=== PATIENT | female | born 1955 | race Caucasian/White ===

== ENCOUNTER 2016-08-28 13:05 | Emergency (ER) | payer OTHER ==
[2016-08-28 13:42] VITALS: BMI 28.3
[2016-08-28 13:57] VITALS: BP 144/91; RESP 16
[2016-08-28 14:01] VITALS: PULSE 88; TEMP 97.7; O2SAT 100
--- NOTE | 2016-08-28 15:29 | ED PDOC ---
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 Otherwise: (-) trauma, (-) urinary symptoms, (-) paresthesias, (-) weakness, (- ) acute bowel or bladder dysfunction, (-) fever. Has no history of prior back problem. PMD Darrius Past Medical History - Provider Review Nursing Documentation Reviewed: Yes - Past History Past History: No Previous - Infectious Disease Hx of Infectious Diseases: None - Tetanus Immunization Tetanus Immunization: Unknown - Reproductive Menopause: Yes - Cardiac Hx Cardiac Disorders: Yes Hx Hypertension: Yes - Pulmonary Hx Respiratory Disorders: Yes Hx Bronchitis: Yes Hx Chronic Obstructive Pulmonary Disease (COPD): Yes - Neurological Hx Neurological Disorder: No - HEENT Hx HEENT Disorder: No - Renal Hx Renal Disorder: No - Endocrine/Metabolic Hx Endocrine Disorders: No - Hematological/Oncological Hx Blood Disorders: No - Integumentary Hx Dermatological Disorder: No - Musculoskeletal/Rheumatological Hx Musculoskeletal Disorders: Yes Hx Back Pain: Yes Hx Falls: No - Gastrointestinal Hx Gastrointestinal Disorders: No - Genitourinary/Gynecological Hx Genitourinary Disorders: No - Psychiatric Hx Psychophysiologic Disorder: No Hx Substance Use: No - Past Surgical History Past Surgical History: Non-Contributing - Surgical History Hx Cardiac Catheterization: Yes (balloon) - Anesthesia Hx Anesthesia: Yes Hx Anesthesia Reactions: No - Suicidal Assessment Feels Threatened In Home Enviroment: No Family/Social History - Physician Review Nursing Documentation Reviewed: Yes Family/Social History: No Known Family HX Smoking Status: Never Smoked Hx Alcohol Use: No Hx Substance Use: No Hx Substance Use Treatment: No Allergies/Home Meds Allergies/Adverse Reactions: Allergies epinephrine Allergy (Verified 08/28/16 13:38) RASH hydroxyzine [From Atarax] Allergy (Verified 08/28/16 13:38) RASH Review of Systems - Review of Systems Constitutional: Normal. absent: Fatigue, Weight Change, Fevers Respiratory: Normal. absent: SOB, Cough, Sputum Cardiovascular: Normal. absent: Chest Pain, Palpitations, Edema Gastrointestinal: Normal. absent: Abdominal Pain, Stool Changes, Appetite Changes Musculoskeletal: Normal, Back Pain. absent: Arthralgias, Neck Pain Skin: Normal. absent: Rash, Pruritis, Skin Lesions Physical Exam - Physical Exam Narrative Physical Exam (Text): 08/28/16 15:32 GENERAL APPEARANCE: Patient is awake, alert, oriented x 3, in no acute distress. SKIN: Warm, dry; (-) cyanosis. EYES: (-) conjunctival pallor. ENMT: Mucous membranes moist. NECK: (-) tenderness, (-) stiffness, (-) lymphadenopathy. CHEST AND RESPIRATORY: (-) rales, (-) rhonchi, (-) wheezes; breath sounds equal bilaterally. HEART AND CARDIOVASCULAR: (-) irregularity; (-) murmur, (-) gallop. ABDOMEN AND GI: Soft; (-) tenderness; (-) palpable mass. BACK: (-) paravertebral tenderness, (-) spasm, (-) direct bony tenderness, (-) deformity. Straight leg raising (-) bilaterally. EXTREMITIES: (-) deformity. Distal pulses good bilaterally. NEURO AND PSYCH: Mental status as above. Intact sensation bilaterally; normal strength in extension of the knees, plantar and dorsiflexion of the toes. DTRs symmetric. Vital Signs Temp Pulse Resp BP Pulse Ox 08/28/16 14:00 97.7 F 88 16 144/91 H 100 08/28/16 13:05 98 F 86 16 144/91 H 97 Medical Decision Making ED Course and Treatment: 08/28/16 15:32 61 yo F c/o low back pain x 4 days. XR L spine ordered, patient medicated with tramadol for pain. XR L spine: (-) acute fracture, mild DJD, as read by PA. XR results d/w the patient in great detail. Reports improvement of her back pain. Based on history, exam and diagnostic results plan will be for outpatient follow up. Patient states she fully agrees with and understands discharge instructions. States that she agrees with the plan and disposition. Verbalized and repeated discharge instructions and plan. I have given the patient opportunity to ask any additional questions. Follow up with primary care physician in 1-2 days without fail. Advised to take medication as prescribed. Return to the emergency room at any time for any new or worsening symptoms. Re-evaluation Time: 16:00 Reassessment Condition: Re-examined (Patient observed ambulating in the ER with a normal gait, in no acute distress. ) - RAD Interpretation Radiology Orders: 08/28/16 14:53 LS SPINE WITH OBL > 18 YRS OLD [RAD] Stat - Medication Orders Current Medication Orders: Discontinued Medications Tramadol HCl (Ultram) 50 mg PO STAT STA Stop: 08/28/16 14:54 Last Admin: 08/28/16 15:12 Dose: 50 mg - PA / IMMIGRATION COORDINATOR / Resident Statement MD/DO has reviewed & agrees with the documentation as recorded. Disposition/Present on Arrival - Present on Arrival Any Indicators Present on Arrival: No History of DVT/PE: No History of Uncontrolled Diabetes: No Urinary Catheter: No History of Decub. Ulcer: No History Surgical Site Infection Following: None - Disposition Have Diagnosis and Disposition been Completed?: Yes Diagnosis: Low back pain Disposition: HOME/ ROUTINE Disposition Time: 17:01 Patient Plan: Discharge Patient Problems: Current Active Problems Problem Status Onset Low back pain Acute Condition: GOOD Discharge Instructions (ExitCare): Acute Low Back Pain (ED) Print Language: SLOVAK Additional Instructions: Thank you for letting us take care of you today. You were treated for low back pain. The emergency medical care you received today was directed at your acute symptoms. If you were prescribed any medication, please fill it and take as directed. It may take several days for your symptoms to resolve. Return to the Emergency Department if your symptoms worsen, do not improve, or if you have any other problems. Please contact your doctor in 2 days for re-evaluation and follow up. Bring any paperwork you were given at discharge with you along with any medications you are taking to your follow up visit. Our treatment cannot replace ongoing medical care by a primary care provider (PCP) outside of the emergency department. Thank you for allowing the [facility] team to be part of your care today. Prescriptions: traMADol [Ultram] 50 mg PO TID #15 tab Referrals: Ayad Rizo MD [Primary Care Provider] - Follow up with primary
--- NOTE | 2016-08-29 12:37 | RAD ---
PROCEDURE: Radiographs of the Lumbar Spine. HISTORY: pain COMPARISON: No prior. FINDINGS: BONES: Normal alignment. No listhesis. No fracture. DISC SPACES: Unremarkable. OTHER FINDINGS: Cholelithiasis noted. IMPRESSION: No evidence of fracture or degenerative disc disease. Cholelithiasis incidentally noted.
== END 2016-08-28 17:05 | disposition home or self-care (01) ==
LOC: ED 13:05
DX: M54.5 Low back pain (principal)

== ENCOUNTER 2017-08-09 18:38 | Emergency (ER) | payer OTHER ==
[2017-08-09 19:39] VITALS: BMI 36.6
[2017-08-09 19:44] VITALS: RESP 18
[2017-08-09] MEDS ORDERED: Albuterol-Ipratrop 3 mg / 0.5 (3 ml) UD IH STA (19:56)
--- NOTE | 2017-08-09 20:17 | ED PDOC ---
Arrival/HPI - General Historian: Patient, Family (son as materials recycler) <Bernardo Lan - Last Filed: 08/09/17 22:08> - History of Present Illness Symptom Onset: Sudden Symptom Course: Worsening Quality: Tightness Severity Level: Moderate <JefevaReji - Last Filed: 08/10/17 00:01> - General Chief Complaint: Respiratory Distress Time Seen by Provider: 08/09/17 19:32 - History of Present Illness Narrative History of Present Illness (Text): 08/09/17 20:05 Patient is a 62 year old female with a past medical history of asthma, hypertension and diabetes presenting with shortness of breath. The shortness of breath started yesterday with increased phlegm (white), cough and wheezing. She took multiple nebulizer treatments but only was able to obtain mild relief for a short period of time. She was unable to sleep last night and the shortness of breath continued to worsen throughout the day to cause her to come to the emergency room. Denies fevers, chills, nausea, vomiting, diarrhea, constipation , chest pain, edema, abdominal pain, numbness, tingling. Patient denies recent travel, recent surgery, sedentary lifestyle, history of dvt/pe or hemoptysis. ( Bernardo Lan) Past Medical History - Provider Review Nursing Documentation Reviewed: Yes - Past History Past History: No Previous - Infectious Disease Hx of Infectious Diseases: None - Tetanus Immunization Tetanus Immunization: Unknown - Reproductive Menopause: Yes - Cardiac Hx Cardiac Disorders: Yes Hx Hypertension: Yes - Pulmonary Hx Respiratory Disorders: Yes Hx Bronchitis: Yes Hx Chronic Obstructive Pulmonary Disease (COPD): Yes - Neurological Hx Neurological Disorder: No - HEENT Hx HEENT Disorder: No - Renal Hx Renal Disorder: No - Endocrine/Metabolic Hx Endocrine Disorders: No - Hematological/Oncological Hx Blood Disorders: No - Integumentary Hx Dermatological Disorder: No - Musculoskeletal/Rheumatological Hx Musculoskeletal Disorders: Yes Hx Back Pain: Yes Hx Falls: No - Gastrointestinal Hx Gastrointestinal Disorders: No - Genitourinary/Gynecological Hx Genitourinary Disorders: No - Psychiatric Hx Psychophysiologic Disorder: No Hx Substance Use: No - Past Surgical History Past Surgical History: Non-Contributing - Surgical History Hx Cardiac Catheterization: Yes (balloon) - Anesthesia Hx Anesthesia: Yes Hx Anesthesia Reactions: No - Suicidal Assessment Feels Threatened In Home Enviroment: No <Bernardo Lan - Last Filed: 08/09/17 22:08> Family/Social History - Physician Review Nursing Documentation Reviewed: Yes Family/Social History: Unknown Family HX Smoking Status: Never Smoked Hx Alcohol Use: No Hx Substance Use: No Hx Substance Use Treatment: No <Bernardo Lan - Last Filed: 08/09/17 22:08> Allergies/Home Meds <Bernardo Lan - Last Filed: 08/09/17 22:08> <Reji Machado - Last Filed: 08/10/17 00:01> Allergies/Adverse Reactions: Allergies epinephrine Allergy (Verified 08/28/16 13:38) RASH hydroxyzine [From Atarax] Allergy (Verified 08/28/16 13:38) RASH Review of Systems - Physician Review All systems were reviewed & negative as marked: Yes - Review of Systems Constitutional: Normal. absent: Fatigue, Fevers Eyes: Normal ENT: Normal. absent: Sore Throat, Rhinorrhea, Sinus Congestion Respiratory: SOB, Cough, Sputum (white) Cardiovascular: Normal. absent: Chest Pain, Palpitations, Edema, Calf Pain, WRIGHT , Orthopnea, Syncope Gastrointestinal: Normal. absent: Abdominal Pain, Constipation, Diarrhea, Nausea, Vomiting Genitourinary Female: Normal. absent: Dysuria, Frequency (baseline increased freq due to lasix) Musculoskeletal: Normal. absent: Back Pain Skin: Normal Neurological: Normal. absent: Headache, Dizziness Endocrine: Normal. absent: Diaphoresis Hemo/Lymphatic: Normal Psychiatric: Normal <Bernardo Lan - Last Filed: 08/09/17 22:08> Physical Exam Vital Signs Reviewed: Yes Blood Pressure: Normal Pulse: Regular Respiratory Rate: Normal Appearance: Positive for: Well-Appearing, Non-Toxic, Comfortable Pain Distress: None Mental Status: Positive for: Alert and Oriented X 3 - Systems Exam Head: Present: Atraumatic, Normocephalic Pupils: Present: PERRL Extroacular Muscles: Present: EOMI Conjunctiva: Present: Normal Mouth: Present: Moist Mucous Membranes Pharnyx: Present: Normal. No: ERYTHEMA, EXUDATE, TONSILS ENLARGED Neck: Present: Normal Range of Motion Respiratory/Chest: Present: Clear to Auscultation, Good Air Exchange. No: Respiratory Distress, Accessory Muscle Use, Wheezes, Rales, Retracting, Rhonchi , Tender to Palpation Cardiovascular: Present: Regular Rate and Rhythm, Normal S1, S2. No: Murmurs Abdomen: Present: Normal Bowel Sounds. No: Tenderness, Distention, Peritoneal Signs, Rebound, Guarding Upper Extremity: Present: Normal Inspection, NORMAL PULSES. No: Cyanosis, Edema Lower Extremity: Present: Normal Inspection, Edema (1+ pitting), NORMAL PULSES. No: CALF TENDERNESS, Tenderness Neurological: Present: GCS=15, CN II-XII Intact, Speech Normal Skin: Present: Warm, Dry, Normal Color. No: Rashes Psychiatric: Present: Alert, Oriented x 3, Normal Insight, Normal Concentration <Bernardo Lan - Last Filed: 08/09/17 22:08> Vital Signs Temp Pulse Resp BP Pulse Ox 08/09/17 22:57 98.6 F 77 18 129/74 98 08/09/17 22:28 98.6 F 08/09/17 19:50 18 08/09/17 19:46 97.1 F L 74 18 147/85 97 08/09/17 19:42 75 18 123/80 98 Medical Decision Making Re-evaluation Time: 22:00 Reassessment Condition: Re-examined, Improved - Lab Interpretations I have reviewed the lab results: Yes - RAD Interpretation Bit Sharpener: ED Physician - EKG Interpretation Interpreted by ED Physician: Yes Comparison: Com.w/previous EKG <Bernardo Lan - Last Filed: 08/09/17 22:08> <Reji Machado - Last Filed: 08/10/17 00:01> ED Course and Treatment: 08/09/17 19:58 Labs and CXR order Given solumedrol and duoneb 08/09/17 21:56 Labs - unremarkable CXR - poor inspiratory effort, no infiltrate noted Patient is sleeping comfortably in bed. She is saturating at 96% on RA breathing comfortably. Patient will be discharged home and was instructed to follow up with her PMD in 2-3 days. Patient states she understands and agrees to discharge plan. (Bernardo Lan) 08/09/17 23:53 Patient Seen With Resident: In agreement with resident note which contains more details about the patient. Patient was seen and evaluated with resident. Came up with plan and treatment together. 62 year old female presents complaining of shortness of breath associated with increased phlegm, cough, and wheezing. Plan: -- EKG -- Labs -- Chest X-ray -- Duoneb, Solu-Medrol -- O2 via Nasal Cannula -- Urinalysis (Reji Machado) - Lab Interpretations Lab Results: 08/09/17 20:24 08/09/17 20:24 Lab Results 08/09/17 20:24: PT 11.9, INR 1.04, APTT 24.8 L 08/09/17 20:24: Sodium 140, Potassium 4.1, Chloride 105, Carbon Dioxide 24, Anion Gap 15, BUN 19, Creatinine 0.8, Est GFR ( Amer) > 60, Est GFR (Non- Af Amer) > 60, Random Glucose 101, Calcium 9.2, Magnesium 2.0, Total Bilirubin 0.3, AST 32, ALT 35, Alkaline Phosphatase 122, Lactate Dehydrogenase 512, Total Creatine Kinase 103, Troponin I < 0.01, NT-Pro-B Natriuret Pep 75.3, Total Protein 7.6, Albumin 4.1, Globulin 3.5, Albumin/Globulin Ratio 1.2 08/09/17 20:24: WBC 7.8 D, RBC 4.01, Hgb 12.1, Hct 36.7, MCV 91.5, MCH 30.2, MCHC 33.0, RDW 14.2, Plt Count 189, MPV 11.8 H, Gran % 50.6, Lymph % (Auto) 38.7 H, Trigg % (Auto) 6.2 H, Eos % (Auto) 4.2, Baso % (Auto) 0.3, Gran # 3.94, Lymph # (Auto) 3.0, Trigg # (Auto) 0.5, Eos # (Auto) 0.3, Baso # (Auto) 0.02 - RAD Interpretation Narrative RAD Interpretations (Text): 08/09/17 22:00 CXR - No active disease, poor inspiratory effort, no infiltrate noted - overall normal CXR (Bernardo Lan) Radiology Orders: 08/09/17 19:55 CXR [CHEST PORTABLE] [RAD] Stat - EKG Interpretation EKG Interpretation (Text): 08/09/17 22:02 [id number]@85bpm, normal axis, inverted p waves in aVR, V1 and V2, poor R wave progression in V1-V3 - inverted p waves seen in leads aVR and V1 but not V2 in prior EKG from 2015. - poor R wave progression compared to prior EKG from 2015. (Bernardo Lan) - Medication Orders Current Medication Orders: Discontinued Medications Albuterol/Ipratropium (Duoneb 3 Mg/0.5 Mg (3 Ml) Ud) 3 ml IH STAT STA Stop: 08/09/17 19:57 Last Admin: 08/09/17 20:54 Dose: 3 ml Methylprednisolone (Solu-Medrol) 125 mg IVP STAT STA Stop: 08/09/17 19:59 Last Admin: 08/09/17 20:54 Dose: 125 mg IVP Administration Document 08/09/17 20:54 IT (Rec: 08/09/17 20:54 IT [id number]) Charges for Administration # of IVP Administrations 1 <Bernardo Lan - Last Filed: 08/09/17 22:08> - PA / GLASS TECHNICIAN/INSTALLER / Resident Statement MD/DO has reviewed & agrees with the documentation as recorded. MD/DO has examined the patient and agrees with the treatment plan. - Scribe Statement The provider has reviewed the documentation as recorded by the Scribe <Reji Machado - Last Filed: 08/10/17 00:01> - Scribe Statement Madhavi Casas Provider Scribe Attestation: All medical record entries made by the Scribe were at my direction and personally dictated by me. I have reviewed the chart and agree that the record accurately reflects my personal performance of the history, physical exam, medical decision making, and the department course for this patient. I have also personally directed, reviewed, and agree with the discharge instructions and disposition. (Reji Machado) Disposition/Present on Arrival - Present on Arrival Any Indicators Present on Arrival: No History of DVT/PE: No History of Uncontrolled Diabetes: No Urinary Catheter: No History of Decub. Ulcer: No History Surgical Site Infection Following: None - Disposition Have Diagnosis and Disposition been Completed?: Yes Disposition Time: 22:12 Patient Plan: Discharge <Bernardo Lan - Last Filed: 08/09/17 22:08> <Reji Machado - Last Filed: 08/10/17 00:01> - Disposition Diagnosis: Asthma exacerbation Disposition: HOME/ ROUTINE Condition: IMPROVED Discharge Instructions (ExitCare): Asthma, Adult (DC) Prescriptions: Methylprednisolone [Medrol Dose Pack (21 tabs)] See Taper PO DAILY #21 mg Referrals: Tee Portillo [Primary Care Provider] - Follow up with primary Forms: [employer] ([place])
[2017-08-09 20:44] LABS: BASO # 0.02 K/mm3 (0.0-2.0); BASO % 0.3 % (0.0-3.0); EOS # 0.3 (0.0-0.7); EOS % 4.2 % (1.5-5.0); GRAN # 3.94 (1.4-6.5); GRAN % 50.6 % (50.0-68.0); HEMOGLOBIN 12.1 g/dL (12.0-16.0); LYMPH % 38.7 % (22.0-35.0); MEAN CELL VOLUME 91.5 fl (80.0-105.0); MEAN CORPUSCULAR HEMOGLOBIN 30.2 pg (25.0-35.0); MEAN PLATELET VOLUME 11.8 fl (7.0-11.0); MONO # 0.5 (0.1-0.6); MONO % 6.2 % (1.0-6.0); RBC 4.01 10^6/uL (3.5-6.1); RED CELL DISTRIBUTION WIDTH 14.2 % (11.5-14.5); WHITE BLOOD COUNT 7.8 10^3/ul (4.5-11.0)
[2017-08-09 20:46] LABS: ALB/GLOB RATIO 1.2 (1.1-1.8); ALBUMIN 4.1 g/dL (3.0-4.8); CALCIUM 9.2 mg/dL (8.4-10.5); GFR AFRICAN-AMERICAN > 60; GFR NON-AFRICAN AMERICAN > 60
[2017-08-09 20:47] LABS: ALT/SGPT 35 U/L (7-56); AST/SGOT 32 U/L (14-36); BLOOD UREA NITROGEN 19 mg/dL (7-21)
[2017-08-09 20:55] LABS: INR 1.04 (0.93-1.08); PARTIAL THROMBOPLASTIN TIME 24.8 Seconds (25.1-36.5); PROTHROMBIN TIME 11.9 SECONDS (9.4-12.5)
[2017-08-09 20:57] LABS: B-TYPE NATRIURETIC PEPTIDE 75.3 pg/mL (0-450); TROPONIN I < 0.01 ng/mL
[2017-08-09 22:29] VITALS: TEMP 98.6
[2017-08-09 23:00] VITALS: BP 129/74; PULSE 77; O2SAT 98
--- NOTE | 2017-08-10 08:42 | RAD ---
HISTORY: Shortness of breath COMPARISON: 12/19/2013. FINDINGS: LUNGS: The lungs are clear. There is mild pulmonary venous congestion. No focal consolidation. PLEURA: No significant pleural effusion identified, no pneumothorax apparent. CARDIOVASCULAR: There is mild cardiomegaly. OSSEOUS STRUCTURES: No significant abnormalities. VISUALIZED UPPER ABDOMEN: Normal. OTHER FINDINGS: None. IMPRESSION: No active pulmonary disease.
--- NOTE | 2017-08-10 19:02 | CARD ---
APPROVED REPORT EKG Measurement Heart [id number] <Conclusion> Normal sinus rhythm Possible Left atrial enlargement Abnormal ECG
== END 2017-08-09 22:58 | disposition home or self-care (01) ==
LOC: ED 18:38
DX: J45.901 Unspecified asthma with (acute) exacerbation (principal); I10 Essential (primary) hypertension; E11.9 Type 2 diabetes mellitus without complications
CPT/HCPCS: 71045; 80053; 82550; 83615; 83735; 83880; 84484; 85025; 85610; 85730; 93005; 96374; 99284; J2930